=== PATIENT | female | born 1985 | race Caucasian/White ===

== ENCOUNTER 2023-11-12 15:32 | Outpatient (CLI) | payer BC, SELFPAY ==
--- NOTE | ~2023-11-12 | CT_ITS ---
EXAMINATION: CT abdomen pelvis w con DATE: 11/12/2023 16:01 INDICATION: Left lower quadrant abdominal pain TECHNIQUE: Computed tomography (CT) of the abdomen and pelvis was performed with 100 mL Omnipaque-350 intravenous contrast. Automated exposure control and iterative reconstruction technique were employe d. The dose-length product was 193.88 mGy-cm. COMPARISON: 09/09/2007 FINDINGS: Lung bases are clear. Heart size is normal. No pericardial or pleural effusion. Liver, gallbladder, s pleen, pancreas and bilateral adrenal glands are normal. There are bilateral renal cysts the largest on the right measuring up to 10 mm in maximal diameter. Numerous tiny foci of high attenuation materi al throughout the fecal stream likely related to ingested material such as Pepto-Bismol. No bowel obs truction. Normal appendix. Bladder is normal. The uterus is not identified and has likely been surgic ally resected. There are few small low-density ovarian follicles at the bilateral adnexa measuring up to 1.2 cm on the left. Minimal likely physiologic free fluid in the posterior right hemipelvis. No a bscess or free intraperitoneal gas. Postoperative change along the anterior abdominal wall. No pathol ogically enlarged abdominal or pelvic lymphadenopathy. Mild lumbar levocurvature. IMPRESSION: 1. Minimal likely physiologic free fluid in the deep pelvis. No acute intra-abdominal/pelvic process. Reviewed, dictated and finalized at location A. D INSPECTOR IMPRESSION: 1. Minimal likely physiologic free fluid in the deep pelvis. No acute intra-abd ominal/pelvic process.
== END 2023-11-12 15:33 | disposition home or self-care (01) ==
PROVIDERS: PCP Family Medicine; Visit Provider Physician Assistant Medical
DX: R19.7 Diarrhea, unspecified (principal); R10.32 Left lower quadrant pain
CPT/HCPCS: 74177; Q9967